=== PATIENT | female | born 1990 | race Caucasian/White ===

== ENCOUNTER 2017-03-02 11:11 | Emergency (ER) | payer OTHER ==
[~2017-03-02] VITALS: Ht 170.2 cm; Wt 91.3 kg
[~2017-03-02 11:11] MED LIST: CIPRO500 MG PO; ENDOCET 5-3251 EACH PO; IBUPROFEN800 MG PO; PROMETHAZINE HC25 M1 PO; TYLENOL WITH C1 EACH PO; VENTOLIN HFA18 GM IH
[2017-03-02] MEDS ORDERED: NAPROSYN500 MG PO (12:51)
[2017-03-02] MEDS ORDERED: CLINDAMYCIN HC300 MG PO (12:51)
[2017-03-02 13:01] VITALS: BP 126/84
== END 2017-03-02 13:02 | disposition home or self-care (01) ==
LOC: EME 11:11
DX: S61.412A Laceration without foreign body of left hand, initial encounter (principal); W26.8XXA Contact with other sharp object(s), not elsewhere classified, initial encounter; Y93.G1 Activity, food preparation and clean up; Z23 Encounter for immunization; Z88.0 Allergy status to penicillin
CPT/HCPCS: 99281; 99284; S0020